=== PATIENT | female | born 1955 | race Caucasian/White ===

== ENCOUNTER → 2017-06-29 | Outpatient (CLI) | payer OTHER | LOC: BMCIMAGING 14:52 | PROVIDERS: ATTEND Internal Medicine | DX: Z13.820 Encounter for screening for osteoporosis (principal); M85.89 Other specified disorders of bone density and structure, multiple sites; Z78.0 Asymptomatic menopausal state ==

== ENCOUNTER 2017-07-30 17:52 | Observation (INO) | payer OTHER ==
--- NOTE | 2017-07-30 18:27 | EDPHY ---
H & P Time Seen by Provider: 07/30/17 18:11 HPI/ROS: CHIEF COMPLAINT: Rapid heart rate, asthma exacerbation HISTORY OF PRESENT ILLNESS: 61-year-old female with asthma presents with rapid heart rate and asthma exacerbation. One-week history of runny nose, sore throat and a cough. Associated with wheezing. She has been using Sudafed and albuterol at home. Excessive albuterol today, 10 puffs. She went to her primary care physician's office just prior to arrival and initially had a heart rate of 150. EKG in the office revealed atrial fibrillation/flutter with RVR. She was given Xopenex x2 for asthma and prednisone 60 mg orally in the office. She had intermittent atrial flutter/fibrillation in the office and was sent here for further evaluation. She currently feels better, without tachycardia, chest pain or dizziness. No fever or chills recently. No prior history of pneumonia. REVIEW OF SYSTEMS: Constitutional: No fever, no chills Eyes: No visual changes Cardiac: No chest pain Gastrointestinal: no vomiting, no abdominal pain Genitourinary: no dysuria Musculoskeletal: No leg pain or swelling Skin: No rash Neurological: No headache, no weakness Psychiatric: No depression Past Medical/Surgical History: Asthma Allergies Social History: No recent alcohol PCP: Dr. Leigh Smoking Status: Current some day smoker Physical Exam: General Appearance: Alert, pleasant Eyes: Pupils equal and round, no conjunctival pallor or injection ENT, Mouth: Mucous membranes moist Neck: Normal inspection Respiratory: normal respiratory rate, diffuse expiratory wheezing Cardiovascular: Regular rate and rhythm, occasional irregular beat Gastrointestinal: Abdomen is soft and nontender Neurological: A&O, nonfocal, normal gait Skin: Warm and dry, no rash Extremities: Nontender, no pedal edema Psychiatric: Mood and affect normal Constitutional: Initial Vital Signs Temperature (C) 37.5 C 07/30/17 17:53 Heart Rate 155 H 07/30/17 17:53 Respiratory Rate 20 07/30/17 17:53 Blood Pressure 119/87 H 07/30/17 17:53 O2 Sat (%) 90 L 07/30/17 17:53 O2 Delivery Mode Room Air Allergies/Adverse Reactions: No Known Allergies Allergy (Unverified 07/30/17 17:56) Home Medications: Medication Instructions Recorded Albuterol [Proventil Inhaler HFA 2 puffs IH Q4 PRN 07/30/17 (*)] Ascorbic Acid [Vitamin C 500 mg 1,000 mg PO DAILY 07/30/17 (*)] Beclomethasone Qvar 80 [Qvar 80 1 inh IH BID 07/30/17 Redihaler (*)] Cholecalciferol Vit D3 [Vitamin D3 2,000 units PO DAILY 07/30/17 2000 units tab (OTC)] Cyanocobalamin (Vitamin B-12) 1,000 mcg PO DAILY 07/30/17 [Vitamin B-12] Herbals/Supplements -Info Only 1 ea PO DAILY 07/30/17 Sertraline HCl [Zoloft 100mg (*)] 100 mg PO HS 07/30/17 Aspirin [Aspirin 81mg (*)] 81 mg PO DAILY #30 tab.chew 07/31/17 Diltiazem [Cardizem Ir Q6hr] 15 mg PO BID #30 tab 07/31/17 predniSONE 60 mg PO DAILY tablet 07/31/17 Medical Decision Making - Diagnostics EKG Interpretation: EKG interpreted by me reveals a sinus rhythm, alternating with atrial fibrillation, ventricular rate 119, PVC present, no ST or T segment changes. ED Course/Re-evaluation: This patient presents with an asthma exacerbation and new onset paroxysmal atrial fibrillation/flutter. She will certainly need further nebulized breathing treatments for asthma, with diffuse expiratory wheezing. This is complicated, given that albuterol likely causes her to go into atrial fibrillation/flutter. The chest x-ray performed prior to arrival reviewed by me and reveals no evidence of pneumonia. Patient currently refuses admission. I strongly encouraged her to to stay for admission. She will decide and let me know. She is a competent decision maker and clearly understands the risks and benefits. 7:20pm- pt agrees to admission. 7:40 p.m.-atrial flutter with RVR has returned. She remained in atrial flutter with RVR, so a diltiazem drip was started. After initiation of diltiazem, pt converted to NSR with a controlled rate. Pt remained on a Dilt drip on transfer to PCU. This pt utilized 35 minutes of critical care time by me exclusive of unbundled procedures. Time spent in direct contact with pt, reassessments, interpretation of labs, review of CXR, medication ordering, consultations. Organ at risk: cardiac Differential Diagnosis: includes though not limited to SVT, hypotension, respiratory failure, pneumonia , pulm edema, PE - Data Points Laboratory Results: Laboratory Results 07/30/17 18:10 07/30/17 18:10 Medications Given: Discontinued Medications Acetaminophen (Tylenol) 650 mg PO EDNOW ONE Stop: 07/30/17 18:32 Last Admin: 07/30/17 18:38 Dose: 650 mg Albuterol/Ipratropium (Duoneb) 3 ml IH QID CAIRA Stop: 01/27/18 05:59 Last Admin: 07/31/17 11:03 Dose: 3 ml Ascorbic Acid (Vitamin C) 1,000 mg PO DAILY CIARA Stop: 01/27/18 08:59 Last Admin: 07/31/17 08:21 Dose: 1,000 mg Aspirin (Aspirin) 81 mg PO DAILY CIARA Stop: 01/27/18 08:59 Last Admin: 07/31/17 08:21 Dose: 81 mg Beclomethasone Dipropionate (Qvar Redihaler) 1 inh IH BID CIARA Stop: 01/27/18 08:59 Last Admin: 07/31/17 08:02 Dose: Not Given Cholecalciferol (Vitamin D) 2,000 units PO DAILY CIARA Stop: 01/27/18 08:59 Last Admin: 07/31/17 08:21 Dose: 2,000 units Diltiazem HCl (Cardizem Immediate Release) 30 mg PO Q6HRS CIARA Stop: 01/27/18 07:04 Last Admin: 07/31/17 12:11 Dose: 30 mg Enoxaparin Sodium (Lovenox) 40 mg SC DAILY CIARA Stop: 01/27/18 08:59 Last Admin: 07/31/17 08:22 Dose: Not Given Sodium Chloride (Ns) 1,000 mls @ 0 mls/hr IV ONCE ONE; Wide Open PRN Reason: Protocol Stop: 07/30/17 18:46 Last Admin: 07/30/17 18:10 Dose: 1,000 mls Diltiazem/Dextrose (Diltiazem 125mg/125ml (Premix)) 125 mls @ 0 mls/hr IV EDNOW ONE; Titrate PRN Reason: Protocol Stop: 07/30/17 20:01 Last Admin: 07/30/17 20:17 Dose: 125 mls Pneumococcal Polyvalent Vaccine (Pneumovax 23) 0.5 ml IM .ONCE ONE Stop: 07/31/17 10:13 Last Admin: 07/31/17 10:29 Dose: 0.5 ml Prednisone (Prednisone) 60 mg PO DAILY [facility] Stop: 01/27/18 08:59 Last Admin: 07/31/17 08:19 Dose: 60 mg Vitamin B Complex (Vitamin B12) 1,000 mcg PO DAILY [facility] Stop: 01/27/18 08:59 Last Admin: 07/31/17 08:21 Dose: 1,000 mcg Departure - Departure Disposition: [facility] Inpatient Acute Clinical Impression: Atrial fibrillation with RVR Asthma exacerbation Qualifiers: Asthma severity: moderate Asthma persistence: persistent Qualified Code(s): J45.41 - Moderate persistent asthma with (acute) exacerbation Condition: Fair
[2017-07-30 18:31] LABS: PLATELET COUNT 239 10^3/uL (150-400)
[2017-07-30] MEDS ORDERED: ACETAMINOPHEN 325 MG TAB PO ONE (18:31)
[2017-07-30] MEDS ORDERED: NS 1,000 ML IV ONE (18:45)
[2017-07-30] MEDS ORDERED: DILTIAZEM 125 MG in D5W 125 ML IV ONE (19:47)
[2017-07-30] MEDS ORDERED: DILTIAZEM HCL/D5W 125 ML IV ONE (20:00)
[2017-07-30] MEDS ORDERED: ONDANSETRON 4 MG/2 ML VIAL IVP PRN (21:37)
[2017-07-30] MEDS ORDERED: ALBUTEROL 3 ML DEYVIAL IH PRN (21:37)
[2017-07-30] MEDS ORDERED: ACETAMINOPHEN 325 MG TAB PO PRN (21:37)
[2017-07-30] MEDS ORDERED: ONDANSETRON DISINTEGRATING 4 MG TAB PO PRN (21:37)
[2017-07-30] MEDS ORDERED: predniSONE 20 MG TAB PO SCH (21:45)
[2017-07-30] MEDS ORDERED: DILTIAZEM 125 MG in D5W 125 ML IV SCH (21:45)
[2017-07-30] MEDS ORDERED: DILTIAZEM HCL/D5W 125 ML IV SCH (22:00)
--- NOTE | 2017-07-30 23:35 | GHP ---
[f rep st] HISTORY AND PHYSICAL DATE OF ADMISSION: 07/30/2017 CHIEF COMPLAINT: Shortness of breath and palpitations. HISTORY OF PRESENT ILLNESS: This is a 61-year-old female with a history of asthma who began with sym ptoms of hay fever that she is quite familiar with, runny nose, itchy eyes, and then developed sympto ms of her asthma with progressive cough that she describes as nonproductive and progressing shortness of breath. Patient went to the grocery store to try to treat her symptoms, picked up some Sudafed, and after taking the Sudafed developed severe palpitations and rapid heart rate. Therefore, presente d to the emergency department for evaluation. Upon arrival to the medical floor, she describes that both her shortness of breath and her palpitations have improved. She describes fatigue, denies any c hanges in her bowel habits, denies dysuria, denies myalgias, reports evening time subjective fevers a nd chills, denies headache. PAST MEDICAL HISTORY: 1. Asthma. 2. Hay fever/seasonal allergies. SOCIAL HISTORY: Occasional tobacco, occasional marijuana, frequent but not daily alcohol consumption . FAMILY HISTORY: Positive for asthma. REVIEW OF SYSTEMS: A 10-point review of systems is negative with the exception of that reported in t he HPI. PHYSICAL EXAMINATION: VITAL SIGNS: Blood pressure 110/81, heart rate 147, respiratory rate 18, satu rating 92% on room air, 36.7. GENERAL: This is a healthy-appearing middle-aged female lying flat in bed. HEENT: Notable for moist mucous membranes. Eye exam is negative for any icterus. CARDIAC: Patient is irregular and tachycardic. PULMONARY: Diffusely wheezy. GASTROINTESTINAL: Positive bow el sounds. ABDOMEN: Soft and nontender. MUSCULOSKELETAL: Negative for any lower extremity edema. SKIN: Negative for any rashes. NEUROLOGIC: She is alert and oriented x3. PSYCHIATRIC: She is pl easant and cooperative on interview and examination. DATA: White count 8.6, hematocrit 43.1, platelets 239. Creatinine 0.8. Troponin less than 0.012. Telemetry, which I personally reviewed and interpreted, showed atrial fibrillation with heart rates i n the 140s. Chest x-ray, which I personally reviewed and interpreted, shows no acute infiltrates or edema. ASSESSMENT AND PLAN: This is a 61-year-old female presenting with shortness of breath and palpitatio ns. 1. Acute asthma exacerbation. Suspect her trigger likely was hay fever; however, need to rule out v iral pathogen. Chest x-ray did not show any acute infiltrates. Will treat with p.o. prednisone, inh aled beta agonists, and supportive care. 2. Acute atrial fibrillation. Based on the patient's history, I suspect she has likely had intermit tent atrial fibrillation for many years. She does report she was in [place] and was told by a physici an there that she had extrasystole, which she believes must have been a loose translation for atrial fibrillation. She does describe intermittently over the past 15 years having episodes where her hear t rate would run fast, and she could cough or sneeze herself out of the rapid heart rate. This episo de I suspect was likely provoked by the Sudafed. However, we will check a TSH and a transthoracic ec hocardiogram. She has been initiated on diltiazem drip which we will continue and transition to p.o. diltiazem in the morning. The patient's [id number] score is 0, so I think she would best be a can didate for aspirin at disposition and ongoing discussion with the medical legal investigator at [facility] in th e outpatient setting. 3. Prophylaxis with Lovenox. 4. Diet. Regular. DISPOSITION: I expect less than 2 midnights if we are able to obtain good rate control on the diltia zem drip and her workup is negative. She should be a candidate for disposition tomorrow. I discusse d the case with the emergency room physician. Patient will be triaged to the PCU for care. /[id number]/MODL
[2017-07-31 04:30] LABS: PLATELET COUNT 211 10^3/uL (150-400)
[2017-07-31] MEDS: IPRATROPIUM/ALBUTEROL 3 ML DEYVIAL IH SCH ×2 (05:25→11:03)
[2017-07-31] MEDS: DILTIAZEM 30 MG TAB PO SCH ×2 (08:18→12:11)
[2017-07-31] MEDS ORDERED: Herbals/Supplements -Info Only PO SCH (09:00)
[2017-07-31] MEDS ORDERED: BECLOMETHASONE QVAR 80 REDIHALER 120 INH/10.6 GM MDI IH SCH (09:00)
[2017-07-31] MEDS ORDERED: CHOLECALCIFEROL VIT D3 2,000 UNITS TAB/CAP PO SCH (09:00)
[2017-07-31] MEDS ORDERED: ASCORBIC ACID 500 MG TAB PO SCH (09:00)
[2017-07-31] MEDS ORDERED: ENOXAPARIN 40 MG/0.4 ML SYR SC SCH (09:00)
[2017-07-31] MEDS ORDERED: ASPIRIN 81 MG CHEWABLE TAB PO SCH (09:00)
[2017-07-31] MEDS ORDERED: predniSONE 20 MG TAB PO SCH (09:00)
[2017-07-31] MEDS ORDERED: CYANO/VITAMIN B12 1000 MCG TAB PO SCH (09:00)
[2017-07-31] MEDS ORDERED: PNEUMOCOCCAL 0.5ML VACCINE VIAL (PNEUMOVAX 23) IM ONE (10:12)
[2017-07-31 11:28] VITALS: BP 108/65
--- NOTE | 2017-07-31 11:33 | ECHO ---
[email or web address] [address] [address] Main: [phone] Fax: Transthoracic Echocardiogram Name: CATHLEEN VANESSA MR#: [id number] Study Date: 07/31/2017 Study Time: 09:29 AM Date of : 1955 Age: 61 year(s) Height: 165.1 cm (65 in.) Weight: 63.5 kg (140 lb.) BSA: 1.7 m2 Gender: Female Examination: Echo Indication: new afib Image Quality: Technically Difficult Contrast: Requested by: Corina Dickerson BP: 130 mmHg/70 mmHg Heart Rate: Rhythm: Indication: new afib Procedure Staff Greige Goods Marker: Aixa Tate [facility] Reading Physician: Domenic Hand MD Requesting Provider: Conclusions: Normal size left ventricle. Normal global systolic LV function. EF is 71 %. No regional wall motion abnormality. Normal RV function. The left atrium is normal in size. Mild mitral valve regurgitation is present. The aortic valve is normal in appearance and function. Mild tricuspid regurgitation is present. There is no previous echocardiogram for comparison. Measurements: Chambers Valvular Assessment AV/MV Valvular Assessment TV/PV Normal Normal Normal Name Value Range Name Value Range Name Value Range Ao Angelia (MM): 2.9 cm (2.2 cm-3.7 AV Vmax: 1.44 m/s (1 m/s-1.7 TR Vmax: 2.73 mm/s ( - ) cm) m/s) TR PGmax: 30 mmHg ( - ) IVSd (2D): 0.9 cm (0.6 cm-1.1 AV maxP mmHg ( - ) syst. PAP: 35 mmHg ( - ) cm) LVOT Vmax: 1.04 m/s (0.7 m/s-1.1 PV Vmax: 0.90 m/s (0.6 m/s-0.9 LVDd (2D): 4.1 cm (3.9 cm-5.3 m/s) m/s) cm) MV E Vmax: 0.82 m/s ( - ) PV PGmax: 3 mmHg ( - ) LVDs (2D): 2.5 cm (2.1 cm-4 MV A Vmax: 0.49 m/s ( - ) cm) MV E/A: 1.67 ( - ) LVPWd (2D): 0.9 cm ( - ) LVEF (2D): 71 (>=54 %) RVDd(2D): 3.6 cm (1.9 cm-3.8 cmmm) Continued Measurements: Chambers Valvular Assessment AV/MV Valvular Assessment TV/PV Patient: CATHLEEN VANESSA Study Date: 07/31/2017 Page 1 of 2 09:29 AM Name Value Name Value Name Value LADs Lon.5 cm MV DecTime: 130 m/s CVP (est.): 5 mmHg LA Area: 12.3 cm2 MV E' Septal: 0.11 m/s LA Volume: 27 ml MV E/E' Septal: 7.50 LA Volume Index: 15.9 ml/m2 MV E/E' Lateral: 6.80 Findings: Left Ventricle: Normal size left ventricle. No LV hypertrophy. Normal global systolic LV function. EF is 71 %. No regional wall motion abnormality. Normal diastolic LV function. Right Ventricle: Normal size right ventricle. Normal RV function. Left Atrium: The left atrium is normal in size. Right Atrium: The right atrium is normal in size. Mitral Valve: The mitral valve is normal in appearance and function. Mild mitral valve regurgitation is present. Aortic Valve: The aortic valve is normal in appearance and function. There is no aortic valve regurgitation. No aortic valve stenosis is present. Tricuspid Valve: The tricuspid valve is normal in appearance and function. Mild tricuspid regurgitation is present. Right ventricular systolic pressure measures 35mmHg. Borderline elevated pumonary artery pressure. Pulmonic Valve: The pulmonic valve is normal in appearance and function. Trivial pulmonic valve regurgitation. Aorta: The aorta is normal. Normal size aortic root measuring 2.9 cm. Pericardium: No pericardial effusion. (No Signature Object) Patient: CATHLEEN VANESSA Study Date: 07/31/2017 Page 2 of 2 09:29 AM [id number]
--- NOTE | 2017-07-31 14:00 | CPEKG ---
Heart Rate: 119 RR Interval: 504 P-R Interval: 152 QRSD Interval: 80 QT Interval: 332 QTC Interval: 468 P Bombay: 75 QRS Bombay: 50 T Wave Bombay: 65 EKG Severity - ABNORMAL ECG - EKG Impression: sinus rhythm alternating with atrial fibrillation EKG Impression: PVC EKG Impression: MINIMAL ST DEPRESSION, ANTEROLATERAL LEADS Electronically Signed By: Giovanna Navarro 31-Jul-2017 23:20:39
--- NOTE | 2017-07-31 17:36 | ASDISCHSUM ---
Discharge Information Plan Status:Home with No Needs Medically Cleared to Leave: Discharge Date:07/31/2017 01:00 PM CM D/C Disposition:Home, Routine, Self-Care ADT D/C Disposition:Home, Routine, Self-Care Projected Discharge Date:07/31/2017 01:00 PM Transportation at D/C:Family Discharge Delay Reason: Follow-Up Date:07/31/2017 01:00 PM Discharge Slot: Final Diagnosis: Placement Information Patient Contact Information Contact Name:CRISTIAN Relationship:Sister Address: Work Phone: City: [facility] Phone: State/Zip Code: Email: Financial Information Financial Class:[employer] Primary Plan Desc:[employer] HMO OPEN ACC LOCAL Primary Plan Number:[id number] Secondary Plan Desc: Secondary Plan Number: Assessment Information Intervention Information
--- NOTE | 2017-07-31 17:36 | GDS ---
[f rep st] DISCHARGE SUMMARY DISCHARGE DIAGNOSES: Include: 1. New-diagnosis atrial fibrillation. 2. Asthma exacerbation. HISTORY OF PRESENT ILLNESS: A very pleasant 61-year-old female with longstanding seasonal and enviro nmental allergies, as well as asthma, who presents after an acute asthma exacerbation with palpitatio ns. For details of the patient's initial presentation, please see the history and physical dated 09/2017. CONSULTATIVE SERVICES: None. PROCEDURES: On 07/31/2017, patient had a transthoracic echocardiogram that showed normal LV size and function without notable valvular abnormalities. HOSPITAL COURSE: By issue: 1. Atrial fibrillation with rapid ventricular response: Patient presented in AFib with heart rates in the 150s to 170s. Based on the history, suspect this was likely provoked from her use of Sudafed and beta agonist inhalers in the outpatient setting. Upon discussion with the patient, it sounds as if she may have had a history of intermittent atrial fibrillation in the past. Typical episodes ofte n came with asthma exacerbations. Infrequently could be discontinued by sneezing or coughing. Stacey sanchez's [id number] is 0 at my evaluation. After discussion with Cardiology, the decision has been kimberly loyd to continue the patient on baby aspirin daily. She spontaneously converted to sinus rhythm overni ght after being treated on a diltiazem drip. We are discharging her on a very low dose of oral dilti azem to encourage her to stay in sinus rhythm until seen by Cardiology in the outpatient setting. Santiago cohn will be seen in the next 2-3 weeks by [facility] for her first post disposition followup. S he will be presenting on daily aspirin 81 mg and diltiazem p.o. 15 mg b.i.d.. 2. Acute asthma exacerbation: Patient was last wheezy the morning after presentation. Was continue d on a prednisone taper which was initiated by her primary care. She will continue to use her schedu led Qvar and p.r.n. albuterol. I am recommending that she follow with Pulmonary Medicine as they can additionally titrate her asthma regimen ongoing in the future to maximize her control and minimize h er medication interaction with her new diagnosis of atrial fibrillation. PENDING STUDIES: At the time of this dictation, none. APPOINTMENTS: Include: 1. With her primary care in the next 2-3 weeks. 2. With outpatient [facility] for followup of her atrial fibrillation in 2-3 weeks. 3. With Pulmonary Medicine next available appointment. TIME SPENT: I spent greater than 30 minutes in the planning and coordination of this discharge. /[id number]/MODL
[2017-07-31] MEDS ORDERED: SERTRALINE HCL 100 MG TAB PO SCH (21:00)
== END 2017-07-31 13:00 | disposition home or self-care (01) ==
LOC: F2W 21:26
PROVIDERS: ADMIT Hospitalist; ATTEND Hospitalist
DX: I48.0 Paroxysmal atrial fibrillation (principal); J45.901 Unspecified asthma with (acute) exacerbation; Z23 Encounter for immunization
CPT/HCPCS: 90471; 93005; 93306; 96361; 96374; 99291; G0378; G0009; J7512

== ENCOUNTER → 2017-07-30 | Outpatient (CLI) | payer OTHER | LOC: BMCIMAGING 16:18 | PROVIDERS: ATTEND Internal Medicine | DX: J45.901 Unspecified asthma with (acute) exacerbation (principal) ==

== ENCOUNTER → 2018-02-02 | Outpatient (CLI) | payer OTHER | LOC: BMCIMAGING 14:10 | PROVIDERS: ATTEND Orthopaedic Surgery Hand Surgery | DX: M18.12 Unilateral primary osteoarthritis of first carpometacarpal joint, left hand (principal) ==